=== PATIENT | female | born 1990 | race Caucasian/White ===

== ENCOUNTER 2024-06-14 08:21 | Outpatient (CLI) | payer OTHER, SELFPAY ==
--- NOTE | 2024-06-14 | EST_ITS ---
Patient Info Name: Darlyn Caraballo Age: 34 years : 1990 Gender: Female Ht: 63 in Wt: 168 lbs BSA: 1.87 m2 Technical Quality: Good Exam Date: 06/14/2024 8:53 AM Exam Location: Echo Lab Patient Status: Outpatient Admit Date: 06/14/2024 Staff Ordering Physician: Ilya, Helen SANTOS Fabric Worker Foreman: Maria Cazares RDCS Attending Provider: DR. NEVILLE Referring Physician: Ilya PEREZ; Exam Type: CA stress echo Study Info Indications I47.1 - Supraventricular tachycardia Treadmill exercise stress echocardiogram is performed. Summary 1. 1. Negative Robin exercise stress test for ischemic ST changes by ECG criteria. 2. 2. Good functional capacity, achieving 11 METs of workload. 3. 3. Appropriate HR response to exercise. 4. 4. Appropriate HR recovery at 1 minute post exercise. 5. 5. Negative stress echocardiogram for ischemia by wall motion analysis. 6. 6. Patient informed of the above results. Stress Echo Findings Left Ventricle Appropriate increase in LV endocardial thickening with systole. Appropriate augmentation of contractility with systole. No wall motion abnormality. Left Ventricle Normal LV systolic function, no wall motion abnormality. Protocol: Robin Stress ECG Details Stage: REST Duration (min): 0 min : 54 sec Speed (mph): 0.0 Grade (%): 0 HR (bpm): 57 SBP (mmHg): 105 DBP (mmHg): 78 METS: --- Stage: REST Duration (min): 10 min : 38 sec Speed (mph): 0.0 Grade (%): 0 HR (bpm): 71 SBP (mmHg): 105 DBP (mmHg): 78 METS: --- Stage: STAGE 1 Duration (min): 1 min : 0 sec Speed (mph): 1.7 Grade (%): 10 HR (bpm): 94 SBP (mmHg): 105 DBP (mmHg): 78 METS: --- Stage: STAGE 1 Duration (min): 2 min : 0 sec Speed (mph): 1.7 Grade (%): 10 HR (bpm): 100 SBP (mmHg): 105 DBP (mmHg): 78 METS: --- Stage: STAGE 1 Duration (min): 3 min : 0 sec Speed (mph): 1.7 Grade (%): 10 HR (bpm): 101 SBP (mmHg): 116 DBP (mmHg): 55 METS: --- Stage: STAGE 2 Duration (min): 1 min : 0 sec Speed (mph): 2.5 Grade (%): 12 HR (bpm): 110 SBP (mmHg): 116 DBP (mmHg): 55 METS: --- Stage: STAGE 2 Duration (min): 2 min : 0 sec Speed (mph): 2.5 Grade (%): 12 HR (bpm): 116 SBP (mmHg): 104 DBP (mmHg): 54 METS: --- Stage: STAGE 2 Duration (min): 3 min : 0 sec Speed (mph): 2.5 Grade (%): 12 HR (bpm): 120 SBP (mmHg): 104 DBP (mmHg): 54 METS: --- Stage: STAGE 3 Duration (min): 1 min : 0 sec Speed (mph): 3.4 Grade (%): 14 HR (bpm): 140 SBP (mmHg): 131 DBP (mmHg): 57 METS: --- Stage: STAGE 3 Duration (min): 2 min : 0 sec Speed (mph): 3.4 Grade (%): 14 HR (bpm): 144 SBP (mmHg): 131 DBP (mmHg): 57 METS: --- Stage: STAGE 3 Duration (min): 3 min : 0 sec Speed (mph): 3.4 Grade (%): 14 HR (bpm): 151 SBP (mmHg): 138 DBP (mmHg): 65 METS: --- Stage: STAGE 4 Duration (min): 0 min : 35 sec Speed (mph): 0.0 Grade (%): 0 HR (bpm): 161 SBP (mmHg): 138 DBP (mmHg): 65 METS: --- Stage: RECOVERY Duration (min): 0 min : 24 sec Speed (mph): 0.0 Grade (%): 0 HR (bpm): 131 SBP (mmHg): 138 DBP (mmHg): 65 METS: --- Stage: RECOVERY Duration (min): 1 min : 24 sec Speed (mph): 0.0 Grade (%): 0 HR (bpm): 108 SBP (mmHg): 138 DBP (mmHg): 65 METS: --- Stage: RECOVERY Duration (min): 2 min : 24 sec Speed (mph): 0.0 Grade (%): 0 HR (bpm): 80 SBP (mmHg): 138 DBP (mmHg): 65 METS: --- Stage: RECOVERY Duration (min): 3 min : 8 sec Speed (mph): 0.0 Grade (%): 0 HR (bpm): 81 SBP (mmHg): 114 DBP (mmHg): 65 METS: --- Rest HR: 71 bpm Peak HR: 161 bpm Rest Sys BP: 105 mmHg Peak Sys BP: 138 mmHg Max Pred HR: 187 bpm % Max Pred HR: 86 % Target HR: 159 bpm Max RPP: 22,218 bpm*mmHg Moy Score: 4 Termination Reason: Reached target heart rate or workload Cardiac Symptoms: None Max ST Seg Deviation: -1.10 mm Total Time: 9 min : 35 sec Rest Hamlin BP: 78 mmHg Peak Hamlin BP: 65 mmHg Angina Score: None Total METS: 11.2 Resting ECG Sinus rhythm. Stress ECG No ST changes. Arrhythmias None. Report Signatures Stress ECG Echo
--- OUTSIDE RECORDS SUMMARY | 2024-06-14 08:40 | XMS_ITS | Clinical Summary ---
Author Organization [facility] Address [address] [place] [address]. [place] [address] [place] [address] Care Team Providers Care Geospatial Scientist Name Role Phone Dax Gomez MD, [facility] Primary Care Provider [phone] Allergies No known active allergies Medications busPIRone (BUSPAR) 10 MG tablet Take 1 tablet (10 mg total) by mouth 3 (three) times daily. Active prazosin (MINIPRESS) 1 MG capsule Take 3 capsules (3 mg total) by mouth nightly at bedtime. Active citalopram (CELEXA) 20 MG tablet Take 0.5 tablets (10 mg total) by mouth daily. Active metoprolol succinate ER (TOPROL-XL) 25 MG 24 hr tablet Take 0.5 tablets (12.5 mg total) by mouth daily. Active Active Problems Problem Noted Date Diagnosed Date SVT (supraventricular tachycardia) (CMS/HCC [facility]/ [facility]) 03/17/2024 Encounters Date Type Department Care Team Description 03/17/2024 1:30 PM CDT Office Visit [facility] [address] [place] [address] Mayo White MD Consult (In ER 01/25/2024 for chest pain and palpitations) 03/17/2024 Travel from Last 3 Months Social History Tobacco Use Types Packs/Day Years Used Date Smoking Tobacco: Former Cigarettes 1 12.4 S tarted: 01/25/2012 Smokeless Tobacco: Never Tobacco Cessation:Counseling Given: Not Answered Alcohol Use Standard Drinks/Week Comments Not Currently 0 (1 standard drink = 0.6 oz pur e alcohol) Comments No Sex and Gender Information Value Date Recorded Sex Assigned at Not on file Legal Sex Female 10:37 AM CDT Gender Identity Not on file Sexual Orientation Not on file Last Filed Vital Signs Vital Sign Reading Time Taken Comments Blood Pressure 124/88 03/17/2024 1:19 PM CDT Pulse 56 03/17/2024 1:15 PM CDT Temperature 37 ??C (98.6 ??F) 01/25/2024 10:42 AM CDT Respiratory Rate 12 03/17/2024 1:15 PM CDT Oxygen Saturation 99% 03/17/2024 1:15 PM CDT Inhaled Oxygen Concentration - - Weight 80.5 kg (177 lb 6.4 oz) 03/17/2024 1:15 P M CDT Height 161.3 cm (5' 3.5 ) 03/17/2024 1:15 PM CDT Body Mass Index 30.93 03/17/2024 1:15 PM CDT Plan of Treatment Health Maintenance Due Date Last Done Comments Cervical Cancer Screening Pa p Smear (Age 30 to 64) Every 3 Years 1990 Annual Physical 1994 Hepatitis C 2009 DTaP, Tdap and Td Vaccines ( 1 - Tdap) 2010 Hepatitis B Vaccines (1 of 3 - 19+ 3-dose series) 2010 Cervical Cancer Screening Pa p with HPV Testing (Age 30 to 64) Every 5 Years 2021 Cervical Cancer Screening with HPV 2021 COVID-19 Vaccine (2023-2 5 season) 2024 Influenza Adult (#1) 2024 HPV Vaccines Aged Out No longer eligi ble based on patient's age to complete this topic Meningococcal B Vaccine Aged Out No l onger eligible based on patient's age to complete this topic Meningococcal Vaccine Aged Out No shivani keara eligible based on patient's age to complete this topic Pneumococcal Vaccine: Pediat rics (0 to 5 Years) and At-Risk Patients (6 to 64 Years) Aged Out No longer eligible b ased on patient's age to complete this topic RSV Immunizations Under 20 Months Aged Out No longer eligible based on patient's age to complete this topic Insurance [employer] [address] [place] [address] Care Teams Geospatial Scientist Relationship Specialty Start Date End Date Best Verduzco MD [facility] [address] [place] [address] PCP - General INTERNAL MEDICINE 01/25/24
--- OUTSIDE RECORDS SUMMARY | 2024-06-14 08:40 | XMS_ITS | Continuity of Care Document ---
Author Organization Address [address] [place] [address] Phone Care Team Providers Care Client Care Specialist Name Role Phone Dany Hood MD Unavailable Unavailable Procedures Procedure Date OFFICE/OUTPATIENT VISIT, [facility] OFFICE/OUTPATIENT VISIT, [facility] OPHTHALMOSCOPY SPECIAL EYE EXAM, INITIAL OPHTHALMOSCOPY SPECIAL EYE EXAM, INITIAL Advance Directives Directive Yes / No Effective Date File Name Resuscitation Not Answered N/A N/A Life Support Not Answered N/A N/A Intubation Not Answered N/A N/A Antibiotics Not Answered N/A N/A IV Fluid Support Not Answered N/A N/A Tube Feed Not Answered N/A N/A Other Directive N/A N/A WARNING:The information contained in this section is historical and is provided for information only and does not constitute a legal document or any assurance that the information is still accurate. Please verify the information with the galvan of the legal document before using it for clinical purposes. Encounters Encounter Description Practice Location Reason(s) For Visit Diagnoses Date Provider Providers Copied on Encounter OFFICE/OUTPA TIENT VISIT, [facility], [address], [place], [address], [place] tel: [phone] CONTUSION ORBITAL TISSUEBlunt Trauma Or HyphemaSubconjuctival Hemmorhage 1 Erwin Saenz . [address], [place], [place], [id number] , [place]. tel: [phone] Referring Provider: Dany Carolina, [address], [place], [address] . tel:[phone] OFFICE/OUTPA TIENT VISIT, [facility], [address], [place], [address], [place] tel: [phone] CONTUSION ORBITAL TISSUEBlunt Trauma Or HyphemaSubconjuctival HemmorhageSubconjucti felipe HemmorhageSubconjucti felipe HemmorhageCONTUSION ORBITAL TISSUEBlunt Trauma Or Hyphema 1 Erwin Saenz . [address], [place], [place], [id number] , [place]. tel: [phone] Referring Provider: Dany Carolina, [address], [place], [address] . tel:[phone] Family History Family Member Type Diagnosis Age At Onset Grandmother (m) Problem (finding) cataract Multiple Problem (finding) Maternal history of didier betes mellitus Payers Payer name Insurance type Covered alliance party ID Authoriza tion(s) No Information Social History Type Description Quantity Date Captured Comments Alcohol Use Details Unknown Caffeine Use Details Unknown Tobacco Use Status Smoking Status No Information Sex Female Chief Complaint And Reason For Visit No Information Reason For Referral Reason For Referral No Information History Of Present Illness Encounter Date Complaint History Of Prese nt Illness No Information Functional Status Date Functional Assessmen t No Information Instructions Date Instruction Yajaira simms - Return in [address] Hood for Dilated Exam. Related to SUBCONJUNCTIVAL HEMMORHAGE CONTUSION ORBITAL TI SSUE OU Blunt Trauma Or Hyphema OS SUBCONJUNCTIVAL HEMMORHAGE OS - Discussed diagnosis in detail with patient. Advised patient of condition. Emphasized and explained compliance. Discussed signs and symptoms of PVD/floaters. Patient instructed to call if condition gets worse. Related to SUBCONJUNCTIVAL HEMMORHAGE - Return in 1 week w all Hood for Dilated Exam. Related to SUBCONJUNCTIVAL HEMMORHAGE CONTUSION ORBITAL TI SSUE OU Blunt Trauma Or Hyphema OS SUBCONJUNCTIVAL HEMMORHAGE OS - Augmentin 500mg bid, dont blow nose (explained that she might have blowout fx... shown skull & explained. Related to SUBCONJUNCTIVAL HEMMORHAGE Assessments Type Assessment Date No Information Patient Care Teams Name Effective Dates (start - stop) Status Members No Information
== END 2024-06-14 08:22 | disposition home or self-care (01) ==
PROVIDERS: Visit Provider Physician Assistant
DX: Z01.419 Encounter for gynecological examination (general) (routine) without abnormal findings (principal); F32.9 Major depressive disorder, single episode, unspecified; F41.9 Anxiety disorder, unspecified; F43.10 Post-traumatic stress disorder, unspecified; F51.5 Nightmare disorder; Z98.890 Other specified postprocedural states; Z90.49 Acquired absence of other specified parts of digestive tract; Z87.891 Personal history of nicotine dependence; Z86.79 Personal history of other diseases of the circulatory system
CPT/HCPCS: 93351